=== PATIENT | female | born 1935 | race Caucasian/White ===

== ENCOUNTER 2017-02-27 11:08 | Emergency (ER) | payer MEDICARE, BC ==
[~2017-02-27] VITALS: Ht 167.6 cm; Wt 78.6 kg
[~2017-02-27 11:08] MED LIST: ACET-1651 PO; ATOR20TA59 PO; CEPH500C2 PO; DABI150C PO; FERR325T40 PO; GUAI600T PO; LOSA50TA52 PO; MULT-1198 PO; NITR0.4T SL; OMEP20TA11 PO; SOTA80TA PO
--- OUTSIDE RECORDS SUMMARY | 2017-02-27 11:13 | XMS REPORT | Continuity of Care Document ---
Author Author [facility] Organization [facility] Address Unknown Phone Unavailable Support Name Relationship Address Phone DANG BUENO DO Caregiver [facility] [address] [place], [place] [phone] [facility]erm[facility] MARRY Next Of Kin [id number] [place] [id number] Insurance Providers Payer Name Policy Number Subscriber Name Relationship Medicare [id number] Aletha Alvarado 18 Self [facility] [id number] Aletha Alvarado 18 Self Problems Medical Problems Problem Onset Date Status Orthostatic hypotension Unknown Active Weakness generalized Unknown Active HTN (hypertension) Unknown Active CAD (coronary artery disease) Unknown Active UTI (urinary tract infection) Unknown Active Spinal stenosis Unknown Active HX: breast cancer Unknown Resolved OA (osteoarthritis) Unknown Active Hypokalemia Unknown Active Anemia Unknown Active Overweight (BMI 25.0-29.9) Unknown Active Debility Unknown Active Dehydration 10/06/2014 Active Surgical Problems Problem Onset Date Recorded Date/Time Status S/P CABG x 3 Unknown 10/05/2014 3:56pm Active Medications Medication Dose Route Sig Days/Qty Instructions Order Date Discontinued Date Status Metoprolol Tartrate 100 Mg PO DAILY 01/21/09 02/22/11 Discontinued Hydrochlorothiazide 12.5 Mg PO DAILY 01/21/09 10/06/14 Discontinued Omeprazole Magnesium 20 Mg PO DAILY 02/22/11 Active Losartan Potassium 100 Mg PO DAILY 02/22/11 Active Acetaminophen 500 Mg PO NEEDED 02/22/11 Active Metoprolol Tartrate 25 Mg PO TWICE DAILY WITH MEALS Take 1 tab, by mouth , two time a day with meals. 08/20/14 Active Loratadine 1 Tab PO DAILY 08/20/14 Active Dabigatran Etexilate Mesylate 1 Cap PO TWICE A DAY Do not break, chew, open cap. 10/05/14 Active Potassium Chloride 10 Meq PO DAILY 10/05/14 10/06/14 Discontinued Furosemide 1 Tab PO DAILY 10/05/14 10/06/14 Discontinued Atorvastatin Calcium 1 Tab PO BEDTIME 10/05/14 Active Amiodarone HCl 2 Tab PO TWICE A DAY 10/05/14 Active Zoledronic Acid Unknown Dose 10/05/14 Active Nitroglycerin 0.4 Mg SL NEEDED For CHEST PAIN 10/05/14 Active Cefdinir 300 Mg PO TWICE A DAY 7 Days 10/06/14 Active Social History Social History Problem Response Recorded Date/Time Hx Substance Use No 10/05/2014 8:30am Hx Alcohol Use No 10/05/2014 8:30am Has the pt used tobacco in the last 12 months No 10/05/2014 2:29pm Tobacco Usage none 10/05/2014 4:09pm Hospital Discharge Instructions No hospital discharge instructions. Plan of Care No plan of care. Functional Status Query Response Date Recorded Physical Hygiene Self October 06, 2014 7:22pm Physical Hygiene Self October 06, 2014 7:22pm Allergies, Adverse Reactions, Alerts Allergen Type Severity Reaction Status Last Updated No Known Drug Allergies Allergy Unknown Active 10/05/14 Immunizations Name Given Type Hx Influenza Vaccination Y aug 11 2014 Historical Hx Pneumococcal Vaccination Y FALL 2010 Historical Hx Influenza Vaccination Y aug 11 2014 Historical Vital Signs No known vital signs results. Results Test Source Date Result Interp. Ref. Range Comments Alanine Aminotransferase (ALT/SGPT) October 05, 2014 9:36am 27 U/L N 9- 52 Albumin October 05, 2014 9:36am 3.7 G/DL N 3.5-5.0 Albumin/Globulin Ratio October 05, 2014 9:36am 1.2 RATIO N 1.1-2.2 Alkaline Phosphatase October 05, 2014 9:36am 80 U/L N 38-126 Anion Gap October 06, 2014 5:24am 7 MEQ/L N 5-15 Aspartate Amino Transf (AST/SGOT) October 05, 2014 9:36am 20 U/L N 14- 36 BUN/Creatinine Ratio October 06, 2014 5:24am 14 RATIO N 6-26 Basophils # (Auto) October 06, 2014 5:24am 0.0 T/MM3 N 0-0.2 Basophils (%) (Auto) October 06, 2014 5:24am 0.6 % N 0-2 Blood Urea Nitrogen October 06, 2014 5:24am 15.0 MG/DL N 7-17 C-Reactive Protein October 05, 2014 9:36am 6.4 MG/L N 0-9 Calcium Level October 06, 2014 5:24am 8.5 MG/DL N 8.4-10.2 Calculated Osmolality October 06, 2014 5:24am 276 MOSM/KG N 261-280 Carbon Dioxide Level October 06, 2014 5:24am 27 MEQ/L N 22-30 Chloride Level October 06, 2014 5:24am 109 MEQ/L DH 98-107 Creatinine October 06, 2014 5:24am 1.1 MG/DL N 0.7-1.2 Eosinophils # (Auto) October 06, 2014 5:24am 0.3 T/MM3 N 0-0.5 Eosinophils (%) (Auto) October 06, 2014 5:24am 4.5 % H 0-4 Globulin October 05, 2014 9:36am 3.0 G/DL N 2.4-3.6 Glucose Level October 06, 2014 5:24am 95 MG/DL N 65-110 Hematocrit October 06, 2014 5:24am 33.0 % L 36-46 Hemoglobin October 06, 2014 5:24am 10.1 GM/DL L 12-16 Lymphocytes # (Auto) October 06, 2014 5:24am 1.0 T/MM3 N 1-4.8 Lymphocytes (%) (Auto) October 06, 2014 5:24am 14.9 % L 23-45 Magnesium Level October 05, 2014 9:36am 2.2 MG/DL N 1.6-2.3 Mean Corpuscular Hemoglobin October 06, 2014 5:24am 28.1 UUG N 26-34 Mean Corpuscular Hemoglobin Concent October 06, 2014 5:24am 30.6 GM/DL L 31-37 Mean Corpuscular Volume October 06, 2014 5:24am 91.9 UM3 N 80-100 Mean Platelet Volume October 06, 2014 5:24am 10.4 UM3 N 9.4-12.4 Monocytes # (Auto) October 06, 2014 5:24am 0.5 T/MM3 N 0-0.8 Monocytes (%) (Auto) October 06, 2014 5:24am 7.8 % N 0-9.0 Neutrophils # (Auto) October 06, 2014 5:24am 4.8 T/MM3 N 1.8-7.7 Neutrophils (%) (Auto) October 06, 2014 5:24am 72.2 % H 33-66 Platelet Count October 06, 2014 5:24am 228 T/MM3 N 130-400 Potassium Level October 06, 2014 5:24am 4.4 MEQ/L DN 3.6-5 RDW Standard Deviation October 06, 2014 5:24am 50.5 FL H 36.9-50.2 Red Blood Count October 06, 2014 5:24am 3.59 M/MM3 L 4.00-5.20 Sodium Level October 06, 2014 5:24am 143 MEQ/L N 134-144 Total Bilirubin October 05, 2014 9:36am 0.70 MG/DL N 0.20-1.30 Total Protein October 05, 2014 9:36am 6.7 G/DL N 6.3-8.2 Troponin I October 05, 2014 10:30pm 0.013 ng/ml N 0-0.12 Urine Bacteria October 05, 2014 11:10am 4+ H - Has specimen been collected/obtained? Y Urine Bilirubin October 05, 2014 11:10am Negative - Has specimen been collected/obtained? Y Urine Blood October 05, 2014 11:10am Trace-intact H - Has specimen been collected/obtained? Y Urine Collection Type October 05, 2014 11:10am Cleancatch-midstream - Has specimen been collected/obtained? Y Urine Color October 05, 2014 11:10am Yellow - Has specimen been collected/obtained? Y Urine Culture Indicated October 05, 2014 11:10am Cult reflexed &setup - Has specimen been collected/obtained? Y Urine Glucose (UA) October 05, 2014 11:10am Negative - Has specimen been collected/obtained? Y Urine Ketones October 05, 2014 11:10am Negative - Has specimen been collected/obtained? Y Urine Leukocyte Esterase October 05, 2014 11:10am 1+ H - Has specimen been collected/obtained? Y Urine Nitrite October 05, 2014 11:10am Positive H - Has specimen been collected/obtained? Y Urine Protein October 05, 2014 11:10am Negative - Has specimen been collected/obtained? Y Urine RBC October 05, 2014 11:10am 3-5 /HPF H - Has specimen been collected/obtained? Y Urine Specific [place] October 05, 2014 11:10am 1.010 L - Has specimen been collected/obtained? Y Urine Squamous Epithelial Cells October 05, 2014 11:10am 0-5 - Has specimen been collected/obtained? Y Urine Turbidity October 05, 2014 11:10am Clear - Has specimen been collected/obtained? Y Urine Urobilinogen October 05, 2014 11:10am 0.2 EU/DL - Has specimen been collected/obtained? Y Urine WBC October 05, 2014 11:10am 5-10 /HPF H - Has specimen been collected/obtained? Y Urine pH October 05, 2014 11:10am 6.0 - Has specimen been collected/ obtained? Y White Blood Count October 06, 2014 5:24am 6.7 T/MM3 N 4.5-11.0 Chemistry Specimen Hemolysis October 06, 2014 5:24am < 15 0-25 0-25 : No Hemolysis.26-70: Slight Hemolysis - can falsely elevate K and Urine Protein. 71-285: Moderate Hemolysis - can falsely elevate K, Troponin I, CA 19-9, PTH, CSF GLucose, and Urine Protein, and can falsely decrease Phenytoin. 286-999: Gross Hemolysis - can falsely elevate K, Troponin I, CA 19-9, PTH, CSF Glucose, and Urine Protine, and can falsely decrease Phenytoin. Recommend specimen recollection. Turbidity October 06, 2014 5:24am < 20 0-20 Glomerular Filtration Rate Calc October 06, 2014 5:24am 48 - Immature Granulocyte # (Auto) October 06, 2014 5:24am 0.00 T/MM3 N 0.00 -0.03 Immature Granulocyte % (Auto) October 06, 2014 5:24am 0.0 % N 0.0-0.5 Icterus Index October 06, 2014 5:24am < 2 0-7 ZC-Oac-T-Type Natriuretic Peptide October 05, 2014 9:36am 918 PG/ML H 0 -175 Rule in cut points: <50 years old=450; 50-75 years old=900; >75 years old=1800; When utilizing ProBNP rule-in cut points, adjustment for impaired renal function is typically not required. Urine Culture Urine, Clean Catch-Midstream October 05, 2014 11:51am Citrobacter Freundii Procedures Procedure Status Date Provider(s) COMP SCREEN MAMMOGRAM ADD-ON completed 02/05/15 [id number]"SCREENING MAMMOGRAPHY, PRODUCING DIRECT DIGITAL IMAGE completed Encounters Encounter Location Date/Time Registered Clinic [facility] 02/05/15 10:11am Discharged Recurring [facility] 02/04/15 1:30pm
--- OUTSIDE RECORDS SUMMARY | 2017-02-27 11:13 | XMS REPORT | Continuity of Care Document ---
Author Author [facility] Organization [facility] Address Unknown Phone Unavailable Care Team Providers Care Record Producer Name Role Phone DANG BUENO DO Primary Care Physician [phone] Insurance Providers Guarantor Aletha Cartagena Address [address] [address] Email DENIED/NO INTERNET Payer [facility] Policy Number [id number] Subscriber's Name ChristianoKrupaAletha Relationship 18 Self Group Number [id number] Effective Date 09 Payer Medicare Policy Number [id number] Subscriber's Name Krupa Cartagenalyn Relationship 18 Self Effective Date 98 Chief Complaint and Reason for Visit Chief Complaint Throat Pain/Injury Reason for Visit [id number] Problems Active Problems Medical Problem Onset Date Status Anemia Unknown Chronic Atrial fibrillation Unknown Acute CAD (coronary artery disease) Unknown Chronic Debility Unknown Acute Dehydration 10/06/2014 Acute Diabetes type 2, controlled Unknown Chronic HTN (hypertension) Unknown Chronic HX: breast cancer Unknown Resolved Hypokalemia Unknown Acute Near syncope Unknown Resolved OA (osteoarthritis) Unknown Chronic Orthostatic hypotension Unknown Acute Overweight (BMI 25.0-29.9) Unknown Chronic Sick sinus syndrome Unknown Resolved Sinus pause Unknown Acute Sinus pause Unknown Resolved Spinal stenosis Unknown Chronic Symptomatic bradycardia Unknown Resolved UTI (urinary tract infection) Unknown Acute Weakness generalized Unknown Acute Surgical Problem Onset Date Status S/P CABG x 3 Unknown Acute Past Problems Medical Problem Onset Date Chest pain on breathing Unknown Diarrhea in adult patient Unknown Gastroenteritis Unknown Viral syndrome Unknown Medications Current Home Medications Medication Dose Units Route Directions Days Qty Instructions Start Date Acetaminophen (Tylenol Extra Strength) 500 Mg Tablet 500 Mg Oral As Needed 02/22/11 Atorvastatin Calcium 20 Mg Tablet 20 Mg Oral Bedtime 10/05/14 Cephalexin 500 Mg Capsule 1 Cap Oral Twice A Day 7 Days 14 Capsule Dabigatran Etexilate Mesylate (Pradaxa) 150 Mg Capsule 150 Mg Oral Twice A Day TAKE WITH FULL GLASS OF WATER. Do not break, chew, open cap. Ferrous Sulfate (Iron) 325 Mg Tablet 650 Tab Oral Give With Breakfast BEST WITH FOOD. 05/15/16 Guaifenesin (Mucinex) 600 Mg Tbbp.12hr 600 Mg Oral Daily as needed for Congestion 05/15/16 Losartan Potassium 50 Mg Tablet 50 Mg Oral Daily 12/29/15 Multivitamin (Multi Vitamin Daily) 1 Each Tablet 1 Tab Oral Daily 09/13/15 Nitroglycerin (Nitrostat) 0.4 Mg Tablet 0.4 Mg Sublingual for Chest Pain 12/08/16 Omeprazole Magnesium (Prilosec Otc) 20 Mg Tablet.dr 20 Mg Oral Daily 02/22/11 Sotalol Hcl (Sotalol) 80 Mg Tablet 40 Mg Oral Twice A Day Past Home Medications Medication Directions Ordered Status Furosemide 20 Mg Tablet, 1 Tab Oral Daily 10/05/14 Discontinued Hydrochlorothiazide 25 Mg Tablet, 12.5 Mg Oral Daily 01/21/09 Discontinued Labetalol Hcl 200 Mg Tablet, 1 Tab Oral Twice A Day 09/13/15 Discontinued Metoprolol Tartrate 100 Mg Tablet, 100 Mg Oral Daily 01/21/09 Discontinued Potassium Chloride 10 Meq Tab.er.prt, 10 Meq Oral Daily 10/05/14 Discontinued Social History Social History Problem Response Recorded Date/Time Onset Date Status Hx Substance Use No 09/22/2016 11:49am Not Applicable Not Applicable Hx Alcohol Use No 09/22/2016 11:49am Not Applicable Not Applicable Has the pt used tobacco in the last 12 months No 12/30/2015 8:08am Not Applicable Not Applicable Tobacco Usage none 09/15/2015 1:52pm Not Applicable Not Applicable Hospital Discharge Instructions No hospital discharge instructions. Plan of Care Discharge Date 12/08/16 11:27am Disposition 01 DISCHARGED HOME, SELF-CARE Condition at Discharge Stable Instructions/Education Provided DI for Viral Syndrome Prescriptions See Medication Section Referrals DANG BUENO DO Address: [address] [place] [phone] Additional Instructions/Education Follow up with Dr. Bueno if not improving or symptoms worsens. Functional Status No functional status results. Allergies, Adverse Reactions, Alerts Allergen Type Severity Reaction Status Last Updated No Known Drug Allergies Allergy Unknown Active 12/08/16 Immunizations Query Response on File Recorded Date/Time Hx Influenza Vaccination Y 12/30/15 8:08am Hx Pneumococcal Vaccination Y 12/30/15 8:08am Hx Influenza Vaccination Y 12/30/15 8:08am Influenza Vaccine Hx NOT REC'D THIS SEASON 12/08/16 10:49am Tetanus Diptheria Vaccine History 201312/08/16 10:49am Vital Signs Acute Vital Signs Vital Response Date/Time Temperature (Fahrenheit) 97.3 deg F (96.8 - 99.1) 12/08/2016 10:46am Temperature (Calculated Celsius) 36.18810 degrees C (36.0 - 37.3) 12/08/2016 10:46am Pulse Rate (adult) 72 bpm (60 - 100) 12/08/2016 10:46am Respiratory Rate 33 breaths/min (10 - 20) 09/22/2016 3:30pm O2 Sat by Pulse Oximetry 97 % (90 - 100) 12/08/2016 10:46am Blood Pressure 127/67 mm Hg 12/08/2016 10:46am Height (Feet) 5 feet 12/08/2016 10:46am Height (Inches) 2.00 inches 12/08/2016 10:46am Weight (Kilograms) 78.600 kg 12/08/2016 10:46am Body Mass Index (BMI) 31.0 12/08/2016 10:46am Results Laboratory Results Test Name Result Units Flags Reference Collection Date/Time Result Date/ Time Comments White Blood Count 10.1 T/MM3 4.5-11.0 09/22/2016 11:47am 09/22/2016 12: 12pm Red Blood Count 4.24 M/MM3 4.00-5.20 09/22/2016 11:47am 09/22/2016 12: 12pm Hemoglobin 13.3 GM/DL 11-0409/22/2016 11:47am 09/22/2016 12:12pm Hematocrit 41.6 % 36-46 09/22/2016 11:47am 09/22/2016 12:12pm Mean Corpuscular Volume 98.1 UM3 80-100 09/22/2016 11:47am 09/22/2016 12:12pm Mean Corpuscular Hemoglobin 31.4 UUG 26-34 09/22/2016 11:47am 2015 12:12pm Mean Corpuscular Hemoglobin Concent 32.0 GM/DL 31-37 09/22/2016 11:47am 09/22/2016 12:12pm RDW Standard Deviation 46.5 FL 36.9-50.2 09/22/2016 11:47am 09/22/2016 12:12pm Platelet Count 223 T/MM3 130-400 09/22/2016 11:47am 09/22/2016 12:12pm Mean Platelet Volume 10.3 UM3 9.4-12.4 09/22/2016 11:47am 09/22/2016 12 :12pm Neutrophils % (Manual) 87.0 % H 33-66 09/22/2016 11:47am 09/22/2016 12: 17pm Band Neutrophils % 9.0 % H 0-6 09/22/2016 11:47am 09/22/2016 12:17pm Lymphocytes % (Manual) 3.0 % L 23-45 09/22/2016 11:47am 09/22/2016 12: 17pm Monocytes % (Manual) 1.0 % 0-9.0 09/22/2016 11:47am 09/22/2016 12:17pm Band Neutrophils # 0.9 T/MM3 09/22/2016 11:47am 09/22/2016 12:17pm Absolute Neutrophils (Manual) 8.8 T/MM3 H 1.8-7.7 09/22/2016 11:47am 01/2016 12:17pm Lymphocytes # (Manual) 0.3 T/MM3 L 1-4.8 09/22/2016 11:47am 09/22/2016 12:17pm Monocytes # (Manual) 0.1 T/MM3 0-0.8 09/22/2016 11:47am 09/22/2016 12: 17pm Red Cell Morphology Comment NORMAL 09/22/2016 11:47am 09/22/2016 12 :17pm Icterus Index < 2 0-7 09/22/2016 11:47am 09/22/2016 12:02pm Chemistry Specimen Hemolysis < 15 0-25 09/22/2016 11:47am 09/22/2016 12:02pm 0-25: Specimen Exhibited No Hemolysis. Turbidity < 20 0-20 09/22/2016 11:47am 09/22/2016 12:02pm Sodium Level 143 MEQ/L 134-144 09/22/2016 11:47am 09/22/2016 12:02pm Potassium Level 4.2 MEQ/L 3.6-5 09/22/2016 11:47am 09/22/2016 12:02pm Chloride Level 107 MEQ/L 98-107 09/22/2016 11:47am 09/22/2016 12:02pm Carbon Dioxide Level 23 MEQ/L 22-30 09/22/2016 11:47am 09/22/2016 12: 02pm Anion Gap 13 MEQ/L 5-15 09/22/2016 11:47am 09/22/2016 12:02pm Blood Urea Nitrogen 21.0 MG/DL H 7-17 09/22/2016 11:47am 09/22/2016 12: 02pm Creatinine 0.9 MG/DL 0.7-1.2 09/22/2016 11:47am 09/22/2016 12:02pm BUN/Creatinine Ratio 23 RATIO 6-26 09/22/2016 11:47am 09/22/2016 12: 02pm Glomerular Filtration Rate Calc 60 09/22/2016 11:47am 09/22/2016 12 :02pm Glucose Level 144 MG/DL H 65-110 09/22/2016 11:47am 09/22/2016 12:02pm Calculated Osmolality 281 MOSM/KG H 261-280 09/22/2016 11:47am 2015 12:02pm Calcium Level 9.1 MG/DL 8.4-10.2 09/22/2016 11:47am 09/22/2016 12:02pm Urine Collection Type VOIDED-NOT CC-MIDSTR 09/22/2016 2:44pm 2015 2:59pm Urine Color YELLOW YELLOW 09/22/2016 2:44pm 09/22/2016 2:59pm Urine Turbidity CLEAR CLEAR 09/22/2016 2:44pm 09/22/2016 2:59pm Urine Specific [place] 1.015 1.015-1.025 09/22/2016 2:44pm 2015 2:59pm Urine pH 5.0 5.0-8.0 09/22/2016 2:44pm 09/22/2016 2:59pm Urine Leukocyte Esterase NEGATIVE NEGATIVE 09/22/2016 2:44pm 2015 2:59pm Urine Nitrite POSITIVE A NEGATIVE 09/22/2016 2:44pm 09/22/2016 2:59pm Urine Protein NEGATIVE NEGATIVE 09/22/2016 2:44pm 09/22/2016 2:59pm Urine Glucose (UA) NEGATIVE NEGATIVE 09/22/2016 2:44pm 09/22/2016 2: 59pm Urine Ketones NEGATIVE NEGATIVE 09/22/2016 2:44pm 09/22/2016 2:59pm Urine Urobilinogen 0.2 EU/DL NORMAL 09/22/2016 2:44pm 09/22/2016 2: 59pm Urine Bilirubin NEGATIVE NEGATIVE 09/22/2016 2:44pm 09/22/2016 2: 59pm Urine Blood 2+ A NEGATIVE 09/22/2016 2:44pm 09/22/2016 2:59pm Urine WBC 0-1 /HPF 0-5 09/22/2016 2:44pm 09/22/2016 3:13pm Urine RBC 5-10 /HPF H 0-3 09/22/2016 2:44pm 09/22/2016 3:13pm Urine Squamous Epithelial Cells 0-5 09/22/2016 2:44pm 09/22/2016 3: 13pm Urine Bacteria 1+ H NEGATIVE 09/22/2016 2:44pm 09/22/2016 3:13pm Urine Culture Indicated CULT REFLEXED &SETUP 09/22/2016 2:44pm 01/2016 3:13pm Microbiology Results Procedure Source Organism/Result Collection Date/Time Result Date/Time Result Status Urine Culture Urine, Voided-Not Cc-Midstream KLEBSIELLA PNEUMO SSP PNEUMO 09/22/2016 3:13pm 09/24/2016 7:48am Final Procedures Procedure Status Date Provider(s) Routine venipuncture Completed 09/22/16 Insert bladder catheter Completed 09/22/16 MAY,LISY M DO X-ray exam of abdomen Completed 09/22/16 Ct abd & pelv w/contrast Completed 09/22/16 Metabolic panel total ca Completed 09/22/16 Urinalysis auto w/scope Completed 09/22/16 Complete cbc w/auto diff wbc Completed 09/22/16 Culture aerobic identify Completed 09/22/16 Urine culture/colony count Completed 09/22/16 Microbe susceptible janet Completed 09/22/16 Hydration iv infusion init Completed 09/22/16 Emergency dept visit Completed 09/22/16 [id number] ITEM OR SERVICE Completed 09/22/16 [id number]"INFUSION, NORMAL SALINE SOLUTION , 1000 CC" Completed 09/22/16 [id number]"INFUSION, NORMAL SALINE SOLUTION , 250 CC" Completed 09/22/16 [id number]"LOW OSMOLAR CONTRAST MATERIAL, 300-399 MG/ML IODINE C Completed Encounters Encounter Location Arrival/Admit Date Discharge/Depart Date Attending Provider Departed Emergency Room [facility] 12/08/16 10:24am 12/08/16 11: 27am ROSSANA VANN APRN Departed Emergency Room [facility] 09/22/16 11:01am 09/22/16 3: 50pm MARCHLISY DO Departed Emergency Room [facility] 09/22/16 10:16am 09/22/16 10: 40am 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
--- OUTSIDE RECORDS SUMMARY | 2017-02-27 11:13 | XMS REPORT | Continuity of Care Document ---
Author Author [facility] Organization [facility] Address Unknown Phone Unavailable Support Name Relationship Address Phone IOANA LUNDBERG MD Caregiver [address] [place] [address] [place] [phone] SENDY CHILDERS MD Caregiver [address] [place] [address] [place] [address] DANG BUENO DO Caregiver [facility] [address] [facility] [facility] [address] [place] [phone] MARRY CARTAGENA Next Of Kin [address] [place] [address] Insurance Providers Payer Name Policy Number Subscriber Name Relationship Medicare [id number] Aletha Cartagena 17 Self Rust [id number] Aletha Cartagena 17 Self Advance Directives Directive Response Recorded Date/Time Ordered Resuscitation Status Full Code 10/05/14 1:07pm Resuscitation Documents on File No 10/05/14 2:28pm Chief Complaint and Reason for Visit Chief Complaint WEAKNESS,ORTHOSTATIC HYPOTENSION Reason for Visit Orthostatic hypotension Weakness generalized HTN (hypertension) CAD (coronary artery disease) S/P CABG x 3 UTI (urinary tract infection) Spinal stenosis HX: breast cancer OA (osteoarthritis) Hypokalemia Anemia Overweight (BMI 25.0-29.9) Debility Dehydration Problems Medical Problems Problem Onset Date Status [...] History Social History Problem Response Recorded Date/Time Smoking Status Never smoker 10/05/2014 2:29pm Hx Substance Use No 10/05/2014 8:30am Hx Alcohol Use No 10/05/2014 8:30am Has the pt used tobacco in the last 12 months No 10/05/2014 2:29pm Hospital Discharge Instructions Instructions: Care Instructions: Reason for Hospitalization: UTI, dehydration, weakness I was in the hospital because (patient own words): PT STATES "FOR WEAKNESS AND DEHYRDATED" Discharge Diet: regular Discharge Activity: activities as tolerated Follow Up Appointments: [address] Bueno Patient Instructions: fluids, ambulate, good nutrition. Hold the 2 diuretics until followup appt. Notify Physician If: fever, worsening weakness or new problems Condition at time of discharge: Good Condition at time of discharge: Good Plan of Care Discharge Date 10/06/14 8:05pm Disposition 01 DISCHARGED HOME, SELF-CARE Instructions/Education Provided DI for Orthostatic Hypotension Prescriptions See Medications Section Functional Status Query Response Date Recorded Physical Hygiene Self October 06, 2014 7:22pm Disabilities None October 06, 2014 7:22pm Devices Used Glasses Cane October 06, 2014 7:22pm Dressing Self October 06, 2014 7:22pm Ambulation Self October 06, 2014 7:22pm Diet Self October 06, 2014 7:22pm Mental Status Alert Oriented October 06, 2014 7:22pm Disabilities None October 06, 2014 7:22pm Devices Used Glasses Cane October 06, 2014 7:22pm Physical Hygiene Self October 06, 2014 7:22pm Dressing Self October 06, 2014 7:22pm Ambulation Self October 06, 2014 7:22pm Diet Self October 06, 2014 7:22pm Allergies, Adverse Reactions, Alerts Allergen Type Severity Reaction Status Last Updated No Known Drug Allergies Allergy Unknown Active 10/05/14 Immunizations Name Given Type Hx Influenza Vaccination Y aug 11 2014 Historical Hx Pneumococcal Vaccination Y FALL 2010 Historical Hx Influenza Vaccination Y aug 11 2014 Historical Vital Signs Acute Vital Signs Vital Response Date/Time Temperature (Fahrenheit) 98.7 deg F (96.8 - 99.1) Temperature (Calculated Celsius) 37.72160 degrees C (36.0 - 37.3) Temperature Source Oral Pulse Rate (adult) 55 bpm (60 - 100) Respiratory Rate 20 breaths/min (10 - 20) O2 Sat by Pulse Oximetry 95 % (90 - 100) Oxygen Delivery Method Room Air Blood Pressure 136/63 mm Hg Blood Pressure Source Automatic Cuff Height 5 ft 4 in Weight 169 lb Body Mass Index 29.0 kg/m^2 Results Test Source Date Result Interp. Ref. [...] 06, 2014 5:24am 27 MEQ/L N 22-30 Chemistry Specimen Hemolysis October 06, 2014 5:24am [...] can falsely decrease Phenytoin. Recommend specimen recollection. Chloride Level October 06, 2014 5:24am 109 MEQ/L DH 98-107 Creatinine October 06, 2014 5:24am 1.1 MG/DL N 0.7-1.2 Eosinophils # (Auto) October 06, 2014 5:24am 0.3 T/MM3 N 0-0.5 Eosinophils (%) (Auto) October 06, 2014 5:24am 4.5 % H 0-4 Globulin October 05, 2014 9:36am 3.0 G/DL N 2.4-3.6 Glomerular Filtration Rate Calc October 06, 2014 5:24am 48 - Glucose Level October 06, 2014 5:24am 95 MG/DL N 65-110 Hematocrit October 06, 2014 5:24am 33.0 % L 36-46 Hemoglobin October 06, 2014 5:24am 10.1 GM/DL L 12-16 Icterus Index October 06, 2014 5:24am < 2 0-7 Immature Granulocyte # (Auto) October 06, 2014 5:24am 0.00 T/MM3 N 0.00 -0.03 Immature Granulocyte % (Auto) October 06, 2014 5:24am 0.0 % N 0.0-0.5 Lymphocytes # (Auto) October 06, 2014 5:24am [...] 06, 2014 5:24am 7.8 % N 0-9.0 NG-Iyd-U-Type Natriuretic Peptide October 05, 2014 9:36am 918 PG/ML H 0 -175 Rule in cut points: <50 years old=450; 50-75 years old=900; >75 years old=1800; When utilizing ProBNP rule-in cut points, adjustment for impaired renal function is typically not required. Neutrophils # (Auto) October 06, 2014 5:24am [...] 05, 2014 10:30pm 0.013 ng/ml N 0-0.12 Turbidity October 06, 2014 5:24am < 20 0-20 Urine Bacteria October 05, 2014 11:10am 4+ [...] Has specimen been collected/obtained? Y Urine Specific [place] October 05, 2014 11:10am 1.010 L - [...] 06, 2014 5:24am 6.7 T/MM3 N 4.5-11.0 Urine Culture Urine, Clean Catch-Midstream October 05, 2014 11:51am Gram Negative Keron Name: ALETHA CARTAGENA Unit #: [id number] : 1935 Sex: F Loc / Svc: SRG DOS: 10/05/14 Signed Report #: [id number] DIAGNOSTIC IMAGING REPORT TYPE OF EXAM: CHEST, PA & LATERAL Dictated By: JOHAN WINSTON MD INDICATION: ITS.REASON: weakness s/p cabg on 08/26 CHEST 2-VIEWS UPRIGHT (PA & LAT): COMPARISON: None FINDINGS: The lungs are clear without evidence of focal abnormal airspace opacity. There is no pleural effusion or pneumothorax. Postoperative changes of prior CABG. Cardiac silhouette is moderately enlarged. Large gas-containing hiatal hernia. Tortuous ectatic thoracic aorta and aortic arch. Evidence of a chronic rotator cuff tear at least on the right. Degenerative changes in the spine. Mild lower thoracic or upper lumbar compression deformity. Impression: No acute cardiopulmonary disease. . Procedures No known history of procedures. Encounters Encounter Location Date/Time Discharged Inpatient [facility] 10/05/14 1:07pm Departed Clinic [facility] 08/20/14 10:57am Registered Clinic [facility] 08/18/14 7:40am Recent Diagnosis Orthostatic hypotension Weakness generalized HTN (hypertension) CAD (coronary artery disease) UTI (urinary tract infection) Spinal stenosis HX: breast cancer OA (osteoarthritis) Hypokalemia Anemia Overweight (BMI 25.0-29.9) Debility Dehydration
[2017-02-27 11:19] VITALS: Ht 167.6 cm; Wt 78.6 kg
--- NOTE | 2017-02-27 11:25 | NUR ---
TO LOBBY TO AWAIT AN OPEN RM. NO ACUTE DISTRESS OBS.
--- NOTE | 2017-02-27 12:20 | NUR ---
REPORT TO DAREN BARNES
--- NOTE | 2017-02-27 12:36 | NUR ---
PROVIDER Elan AZEVEDO APRN AT BEDSIDE FOR EXAM.
--- NOTE | 2017-02-27 12:44 | ERPDOC ---
Departure Disposition Decision Date: Feb 27, 2017 Disposition Decision Time: 13:50 Disposition: 01 DISCHARGED HOME, SELF-CARE Impression Impression Impression: Primary Impression: UTI (urinary tract infection) Urinary tract infection type: acute cystitis Hematuria presence: without hematuria Qualified Codes: N30.00 - Acute cystitis without hematuria Additional Impression: Dehydration Severity: Moderate Condition: Stable Seen By: Mid-level only Referrals: DANG BUENO DO (PCP/Family) Patient Instructions: Urinary Tract Infection in Women (ED) Problems/Meds/Labs Reviewed?: Yes Medications reviewed and manag: Yes Additional Instructions: Take the Keflex as prescribed for the urinary tract infection. Check with Dr Bueno about resuming the Bactrim when you are done with the Keflex. Make sure you are drinking plenty of fluids at home. If any other issues/concerns then return to ER. Follow up care ordered?: Yes Mental Status: Alert, Oriented Scripts Cephalexin (Keflex) 500 Mg Capsule 1 CAP PO TID, #21 CAP 0 Refills Prov: JOSE AZEVEDO BEATER OPERATOR 02/27/17 HPI - General Medical General Chief Complaint: Weakness/Neuro Symptoms Stated Complaint: POSS DEHYDRATION Time Seen by Provider: 12:36 Source: patient Exam Limitations: no limitations HPI - General Medical Initial Comments She states that for the last few days she has been feeling like she is a little dehydrated. She has trouble with this about every 6 months. She usually goes to her PCP office and gets a liter of IVF and this helps. She has been able to eat and drink but is just feeling weak overall. Denies any other symptoms. She does take a diuretic daily. Has not had any vomiting or diarrhea. She does take a Bactrim daily due to frequent history of UTI in the past. Occurred At: home Onset: Gradual Duration: 1 week Severity: moderate Associated Symptoms: malaise, weakness, DENIES: chest pain, cough, diaphoresis , fever/chills, headaches, loss of appetite, nausea/vomiting, rash, seizure, shortness of breath, syncope Hx of Similar Symptoms: No Allergies: Coded Allergies: No Known Drug Allergies (Verified Allergy, Unknown, 02/27/17) Past History Past Medical History Metabolic: cancer, diabetes, hypercholesterolemia, hypertension Cardiac: A-fib, CAD GI: GERD Musculoskeletal: osteoarthritis Hematologic: anemia Surgical History General: appendix Cardiac: cardiac bypass, cardiac cath Reproductive/: hysterectomy Family History Family PMH: FOUND: CAD, CHF, VA Vaccines Hx Influenza Vaccination: Yes () Hx Pneumococcal Vaccination: Yes () Social History Does patient use chewing tobac: No Substance Use Type: does not use Alcohol Intake: none Marital Status: Sexuality: male partner Review of Systems Constitutional Constitutional: fatigue, weakness, DENIES: chills, dizziness, fever Eyes Vision: DENIES: blurring, double vision ENMT Ears: DENIES: drainage, pain Sinuses: DENIES: congestion, rhinorrhea Mouth/Throat: DENIES: painful swallowing, scratchy throat, sore throat Cardiovascular Cardiac: DENIES: chest pain, orthopnea Rhythm/Rate: DENIES: irregular beat, palpitations Vascular: pedal edema (BLE but less than her baseline) Pulmonary Respiratory: DENIES: cough, dyspnea, sputum, tachypnea GI Upper Abdomen: DENIES: nausea, pain, vomiting Lower Abdomen: DENIES: constipation, diarrhea, pain Integumentary Skin: DENIES: rash Neurological General: DENIES: headache, numbness, tingling, weakness Physical Exam General General Nourishment: well nourished, well developed, appears stated age, no acute distress, adult General Body Habitus: well groomed Vitals and Pain First Documented Vital Signs Date Time Temp Pulse Resp B/P Pulse Ox O2 Delivery O2 Flow Rate FiO2 02/27/17 11:15 98.3 70 16 179/77 96 Room Air Weight: Kilograms: 78.600 Height (feet): 5 Height (inches): 6.00 Triage Pain Scale: RN VS reviewed by Provider: Yes Normal Exams: Neck: Full range of motion, without adenopathy, JVD, bruits or thyromegaly Chest/Resp: Clear all pressley, with good airflow, and symmetry bilaterally CV: Regular rate and rhythm, without murmur or gallop, Pulses 2+ all extremities, capillary refill, <2 seconds all ext., no pedal edema noted Abdomen: Bowel sounds positive, soft, non-tender, non-distended, no hepatosplenomegaly, masses or bruits noted Lymphatic: No lymphadenopathy, or lymphedema noted Integumentary: No rashes, hives, or bruising noted Neurologic: Patient is alert, and oriented Psychiatric: Patient exhibits, appropriate attention, emotion and affect ENMT (brief) ENMT Brief: FOUND: TM clear, TM good light reflex, ear canals clear, mucosa moist, normal dentition, normal tonsils, NOT FOUND: nasal erythema, nasal exudate, nasal swelling, pharnyx erythema, tonsillar deviation Cardiovascular (brief) Cardiac: FOUND: pedal edema (BLE but she states that this is less than she normally has which makes her think that she may be dry) Differential Diagnoses Considering: Hypo/Hyperglycemia, Hypo/Hyperkalemia, Hypo/Hypernatremia, Other ( ARF, UTI, dehydration) Progress Results/Orders Orders Procedure Category Date Status Time Cbc W/Auto LAB 02/27/17 Complete Diff-Reflex Manual Bmp - Basic Metabolic LAB 02/27/17 Complete Panel Iv Lock (Ed Only) EDM 02/27/17 Transmitted 12:40 Normal Saline (Normal PHA 02/27/17 Complete Saline Iv) 12:45 UA, LAB 02/27/17 Complete Dip&Micro(Complete) & 13:11 Urine Culture LILLI 02/27/17 In Process 13:43 Ceftriaxone I.V. (Er PHA 02/27/17 Complete Use Only) (Rocephin 14:00 Lab Results Laboratory Tests Test 02/27/17 13:11 02/27/17 13:13 Urine Collection Type Cleancatch-midstream Urine Color Yellow Urine Turbidity Cloudy Urine pH 5.5 Urine Specific [place] 1.025 Urine Protein Negative Urine Glucose (UA) Negative Urine Ketones Negative Urine Blood Trace-lysed Urine Nitrite Positive Urine Bilirubin Negative Urine Urobilinogen 0.2EU/DL Urine Leukocyte Esterase Trace Urine RBC 1-3/HPF Urine WBC 5-10/HPF Urine Calcium Oxalate Crystals Moderate Urine Bacteria 4+ Urine Culture Indicated Cult reflexed &setup White Blood Count 8.1T/MM3 Red Blood Count 4.28M/MM3 Hemoglobin 13.0GM/DL Hematocrit 40.9% Mean Corpuscular Volume 95.6UM3 Mean Corpuscular Hemoglobin 30.4UUG Mean Corpuscular Hemoglobin Concent 31.8GM/DL RDW Standard Deviation 45.9FL Platelet Count 226T/MM3 Mean Platelet Volume 10.3UM3 Immature Granulocyte % (Auto) 0.1% Neutrophils (%) (Auto) 67.2% Lymphocytes (%) (Auto) 21.8% Monocytes (%) (Auto) 7.4% Eosinophils (%) (Auto) 3.1% Basophils (%) (Auto) 0.4% Absolute Immature Granulocyte (auto 0.01T/MM3 Absolute Neutrophils (auto) 5.5T/MM3 Absolute Lymphocytes (auto) 1.8T/MM3 Absolute Monocytes (auto) 0.6T/MM3 Absolute Eosinophils (auto) 0.3T/MM3 Absolute Basophils (auto) 0.0T/MM3 Turbidity < 20 Sodium Level 143MEQ/L Potassium Level 4.5MEQ/L Chloride Level 106MEQ/L Carbon Dioxide Level 21MEQ/L Anion Gap 16MEQ/L Blood Urea Nitrogen 15.0MG/DL Creatinine 1.1MG/DL Glomerular Filtration Rate Calc 47 BUN/Creatinine Ratio 14RATIO Glucose Level 105MG/DL Calculated Osmolality 276MOSM/KG Calcium Level 9.3MG/DL Icterus Index < 2 Chemistry Specimen Hemolysis 44 Medications Current ED Medications Sodium Chloride 1,000 ml @ 1,000 mls/hr Q1H ONCE IV ; Start 02/27/17 at 12:45; Stop 02/27/17 at 13:44; Status DC Ceftriaxone Sodium/Sodium Chloride (Rocephin/NS) 100 ml @ 100 mls/hr O ONCE IV Last administered on 02/27/17t 13:57; Start 02/27/17 at 14:00; Stop at 14:59; Status DC Progress Progress CBC is normal today. BMP is normal. UA is nitrite positive, LE-trace, WBC-5-10, and Bacteria-4+. Will go ahead and have her start on some Keflex today. I do want to have her contact Dr Bueno regarding her Bactrim before she resumes this when done with the Keflex. Push fluids at home. If any other issues/ concerns then return to ER. JOSE AZEVEDO APRN Feb 27, 2017 12:43
[2017-02-27] MEDS ORDERED: NORMAL SALINE 1,000 ML IV ONE (12:45)
[2017-02-27] MEDS ORDERED: SULF1TAB3 PO (12:56)
[2017-02-27] MEDS ORDERED: FOLI0.8T PO (12:56)
[2017-02-27] MEDS ORDERED: FEXO180T94 PO (12:56)
[2017-02-27 13:29] LABS: BASOPHILS % (AUTO) 0.4 % (0-2); EOSINOPHILS # (AUTO) 0.3 T/MM3 (0-0.5); EOSINOPHILS % (AUTO) 3.1 % (0-4); HCT - HEMATOCRIT 40.9 % (36-46); IMMATURE GRANULOCYTE # (AUTO) 0.01 T/MM3 (0.00-0.03); IMMATURE GRANULOCYTE % (AUTO) 0.1 % (0.0-0.5); LYMPHOCYTES # (AUTO) 1.8 T/MM3 (1-4.8); LYMPHOCYTES % (AUTO) 21.8 % (23-45); MEAN CORPUSCULAR HGB 30.4 UUG (26-34); MEAN CORPUSCULAR HGB CONC(MCHC 31.8 GM/DL (31-37); MEAN CORPUSCULAR VOLUME 95.6 UM3 (80-100); MEAN PLATELET VOLUME 10.3 UM3 (9.4-12.4); MONOCYTES # (AUTO) 0.6 T/MM3 (0-0.8); MONOCYTES % (AUTO) 7.4 % (0-9.0); NEUTROPHILS #(AUTO)-ABSOLUTE 5.5 T/MM3 (1.8-7.7); NEUTROPHILS % (AUTO) 67.2 % (33-66); RED BLOOD COUNT 4.28 M/MM3 (4.00-5.20); WBC - WHITE BLOOD COUNT 8.1 T/MM3 (4.5-11.0)
[2017-02-27 13:32] LABS: BLOOD, URINE TRACE-LYSED (NEGATIVE); COLOR,URINE YELLOW (YELLOW); LEUKOCYTE ESTERASE ,URINE TRACE (NEGATIVE); NITRITE,URINE POSITIVE (NEGATIVE); UROBILINOGEN,URINE 0.2 EU/DL (NORMAL)
[2017-02-27 13:42] LABS: BACTERIA,URINE 4+ (NEGATIVE); CALCIUM OXALATE CRYSTALS,UR MODERATE
[2017-02-27 13:45] LABS: ANION GAP 16 MEQ/L (5-15); BUN/CREATININE RATIO 14 RATIO (6-26); CALCIUM 9.3 MG/DL (8.4-10.2); CHLORIDE 106 MEQ/L (98-107); CO2 - CARBON DIOXIDE 21 MEQ/L (22-30); CREATININE 1.1 MG/DL (0.7-1.2); GLOMERULAR FILTRATION RATE 47; GLUCOSE 105 MG/DL (65-110); POTASSIUM 4.5 MEQ/L (3.6-5); SODIUM 143 MEQ/L (134-144)
[2017-02-27] MEDS ORDERED: CEPH-583 PO (13:51)
[2017-02-27] MEDS ORDERED: CEFTRIAXONE I.V. (ER USE ONLY) 1 G in NORMAL SALINE 100 ML IV ONE (14:00)
[2017-02-27 14:38] VITALS: BP 156/70; PULSE 74; RESP 16; TEMP 98.3; O2SAT 95
--- OUTSIDE RECORDS SUMMARY | 2017-02-27 14:41 | XMS REPORT | Continuity of Care Document ---
Author Author [facility] Organization [facility] Address Unknown Phone Unavailable Support Name Relationship Address Phone DANG BUENO DO Caregiver [facility] [address] [place], [place] [phone] [facility] MARRY Next Of Kin [address] [place] [address] Insurance Providers Payer Name Policy Number Subscriber Name Relationship Medicare [id number] Aletha Alvarado [address] [facility] [id number] Aletha Alvarado 17 Self Problems Medical Problems [...] Has specimen been collected/obtained? Y Urine Specific [place] October 05, 2014 11:10am 1.010 L - [...] October 06, 2014 5:24am < 2 0-7 DA-Gym-K-Type Natriuretic Peptide October 05, 2014 9:36am 918 PG/ML H 0 -175 Rule in cut points: <50 years old=450; 50-75 years old=900; >75 years old=1800; When utilizing ProBNP rule-in cut points, adjustment for impaired renal function is typically not required. Urine Culture Urine, Clean Catch-Midstream October 05, 2014 11:51am Citrobacter Freundii Procedures Procedure Status Date Provider(s) COMP SCREEN MAMMOGRAM ADD-ON completed 02/05/15 [id number]"SCREENING MAMMOGRAPHY, PRODUCING DIRECT DIGITAL IMAGE completed Encounters Encounter Location Date/Time Registered Clinic [facility] 02/05/15 10:11am Discharged Recurring [facility] 02/04/15 1:30pm
--- OUTSIDE RECORDS SUMMARY | 2017-02-27 14:41 | XMS REPORT | Continuity of Care Document ---
Author Author [facility] Organization [facility] Address Unknown Phone Unavailable Support Name Relationship Address Phone IOANA LUNDBERG MD Caregiver [address] [place] [address] [place] [phone] SENDY CHILDERS MD Caregiver [address] [place] [address] [place] [address] DANG BUENO DO Caregiver [facility] [address] [place] [phone] MARRY CARTAGENA Next Of Kin [address] [place] [address] Insurance Providers Payer Name Policy Number Subscriber Name Relationship Medicare [id number] Aletha Cartagena 17 Self [facility] [id number] Aletha Cartagena 17 Self Advance Directives Directive [...] F (96.8 - 99.1) Temperature (Calculated Celsius) 37.20028 degrees C (36.0 - 37.3) Temperature Source [...] 06, 2014 5:24am 7.8 % N 0-9.0 JI-Foc-B-Type Natriuretic Peptide October 05, 2014 9:36am 918 [...] Has specimen been collected/obtained? Y Urine Specific [place] October 05, 2014 11:10am 1.010 L - [...] Negative Keron Name: ALETHA CARTAGENA Unit #: [id number] : 1935 Sex: F Loc / Svc: SRG DOS: 10/05/14 Signed Report #: [id number] DIAGNOSTIC IMAGING REPORT TYPE OF EXAM: CHEST, [...] procedures. Encounters Encounter Location Date/Time Discharged Inpatient [facility] 10/05/14 1:07pm Departed Clinic [facility] 08/20/14 10:57am Registered Clinic [facility] 08/18/14 7:40am Recent Diagnosis Orthostatic hypotension Weakness generalized HTN (hypertension) CAD (coronary artery disease) UTI (urinary tract infection) Spinal stenosis HX: breast cancer OA (osteoarthritis) Hypokalemia Anemia Overweight (BMI 25.0-29.9) Debility Dehydration
== END 2017-02-27 14:38 | disposition home or self-care (01) ==
LOC: ED 11:08
DX: N30.00 Acute cystitis without hematuria (principal); E86.0 Dehydration
CPT/HCPCS: 80048; 81001; 85025; 87086; 96365; 99284; J0696; J7050